=== PATIENT | female | born 1980 | race Caucasian/White ===

== ENCOUNTER 2018-04-04 21:23 | Emergency (ER) | payer SELFPAY ==
[~2018-04-04] VITALS: Ht 167.6 cm; Wt 63.0 kg
[2018-04-04 21:27] VITALS: BP 112/67; PULSE 76; RESP 16; TEMP 97.7; O2SAT 100
[2018-04-04] MEDS ORDERED: IBUP1TAB7 PO (21:55)
[2018-04-04] MEDS ORDERED: CEPH-460 PO (21:55)
--- NOTE | 2018-04-04 21:55 | PD ---
HPI Chief Complaint: Bite or Sting Time Seen by Provider: 21:40 Travel History International Travel<30 days: No Contact w/Intl Traveler<30days: No Traveled to known affect area: No History of Present Illness HPI Patient is a 37-year-old female presenting for evaluation of an insect bite to her left hip. Patient states started 3 days ago, she reported the pain was a 10 out of 10, she took ibuprofen 800 mg 1 hour prior to arrival which is reduced her pain. Patient reported that it drained spontaneously yesterday. The area had been previously marked by a friend who is a nurse and induration is receding. Patient has not had any fevers documented. She denies any other complaints at this time. She reports the pain is an ache and constant. She denies any pain with ambulation or in her hip. Patient further denies any significant past medical history. PFSH Past Medical History Medical History: Denies Significant Hx ?: Not LMP: 5 DAYS AGO Social History Tobacco Use: No Allergies-Medications (Allergen,Severity, Reaction): Coded Allergies: No Known Allergies (Unverified , 04/04/18) Review of Systems Except as stated in HPI: all other systems reviewed are Neg Musculoskeletal: Positive: Pain Skin: Positive Change in Pigmentation Physical Exam Narrative GENERAL: Well-developed, well-nourished, alert female. Presenting in no acute distress. SKIN: Warm and dry. Mild erythema noted to lateral aspect of left hip. Moderately tender to palpation. No fluctuance noted, no warmth noted. HEAD: Normocephalic. EYES: No scleral icterus. No injection or drainage. NECK: Supple, trachea midline. No JVD or lymphadenopathy. CARDIOVASCULAR: Regular rate and rhythm without murmurs, gallops, or rubs. RESPIRATORY: Breath sounds equal bilaterally. No accessory muscle use. GASTROINTESTINAL: Abdomen soft, non-tender, nondistended. MUSCULOSKELETAL: No cyanosis, or edema. BACK: Nontender without obvious deformity. No CVA tenderness. Data Data Last Documented VS Vital Signs Date Time Temp Pulse Resp B/P (MAP) Pulse Ox O2 Delivery O2 Flow Rate FiO2 04/04/18 21:27 97.7 76 16 112/67 (82) 100 Orders Orders Cephalexin (Keflex) (04/04/18 22:00) [facility] Medical Decision Making Medical Screen Exam Complete: Yes Emergency Medical Condition: Yes Interpretation(s) Vital Signs Date Time Temp Pulse Resp B/P (MAP) Pulse Ox O2 Delivery O2 Flow Rate FiO2 04/04/18 21:27 97.7 76 16 112/67 (82) 100 Differential Diagnosis Cellulitis versus abscess versus bite versus sting versus other Narrative Course Patient is a 37-year-old female presenting for evaluation of a suspected insect bite to her left lateral hip. Patient's vital signs are stable, area had been previously marked and induration is receding. Additionally it started draining spontaneously yesterday. It does not appear to be any area of fluctuance to indicate any further I&D. Patient will be started on Keflex prophylactically. First dose will be given now. She is encouraged to apply warm compresses to the affected area, take ibuprofen as needed as directed for pain. She is encouraged to return to emergency department for any new or worsening symptoms. Patient friend verbalized understanding of instructions. Patient stable for discharge. Diagnosis Primary Impression: Cellulitis Qualified Codes: L03.116 - Cellulitis of left lower limb Referrals: Primary Care Physician Patient Instructions: Cellulitis (ED), General Instructions Additional Instructions: Apply warm compress to the affected area Take ibuprofen as directed for pain Complete full course of antibiotics as prescribed Follow-up with primary doctor or at the [facility] Return to emergency department for any new worsening symptoms Med/Other Pt SpecificInfo: Prescription(s) given Scripts Ibuprofen (Ibuprofen) 800 Mg Tab 800 MG PO Q6HR Y for PAIN, #40 TAB 0 Refills Prov: Rahda Rogers 04/04/18 Cephalexin (Keflex) 500 Mg Cap 500 MG PO Q12H for Infection for 7 Days, #14 CAP 0 Refills Prov: Radha Rogers 04/04/18 Disposition: 01 DISCHARGE HOME Condition: Stable Radha Rogers April 04, 2018 21:55
[2018-04-04] MEDS ORDERED: CEPHALEXIN MONOHYDRATE 500 MG CAP PO ONE (22:00)
== END 2018-04-04 22:08 | disposition home or self-care (01) ==
LOC: NEPD 21:23
DX: L03.116 Cellulitis of left lower limb (principal)
CPT/HCPCS: 99283

== ENCOUNTER 2018-04-11 16:02 | Emergency (ER) | payer SELFPAY ==
[~2018-04-11] VITALS: Ht 167.6 cm; Wt 61.5 kg
[~2018-04-11 16:02] MED LIST: CEPH-460 PO; IBUP1TAB7 PO
[2018-04-11 16:07] VITALS: BP 117/67; PULSE 80; RESP 16; TEMP 98.6; O2SAT 100
--- NOTE | 2018-04-11 18:29 | PD ---
HPI Chief Complaint: Skin Problem Time Seen by Provider: 17:19 Travel History International Travel<30 days: No Contact w/Intl Traveler<30days: No Traveled to known affect area: No History of Present Illness HPI Patient is a 37-year-old female presenting to the emergency department for evaluation of a skin infection to her left lateral hip. Patient was evaluated for this approximately 1 week ago, she was given a prescription for Keflex but she reports compliance with. She denies any fever or chills, she states the pain has improved and the redness as well. She states it was draining spontaneously. She has been putting an [id number] salve on it for abscesses. Initially started out as an insect bite. Patient states mildly tender to palpation, she reports the pain is a 3 out of 10, sore, intermittent. PFSH Past Medical History Medical History: Denies Significant Hx Diminished Hearing: No Immunizations Current: Yes Tetanus Vaccination: < 5 Years Influenza Vaccination: No ?: Not LMP: march 30 Past Surgical History Surgical History: No Previous Surgery Social History Alcohol Use: No Tobacco Use: No Substance Use: No Allergies-Medications (Allergen,Severity, Reaction): Coded Allergies: No Known Allergies (Unverified , 04/11/18) Reported Meds & Prescriptions Reported Meds & Active Scripts Active Ibuprofen 800 Mg Tab 800 Mg PO Q6HR PRN Keflex (Cephalexin) 500 Mg Cap 500 Mg PO Q12H 7 Days Review of Systems Except as stated in HPI: all other systems reviewed are Neg Skin: Positive Change in Pigmentation, Positive Lesions Physical Exam Narrative GENERAL: Well-developed, well-nourished, alert female. Presenting in no acute distress. SKIN: Warm and dry. There is mild/faint erythema to the lateral aspect of the left hip. There is a circular 1-2 mm opening in the center that is draining serous fluid. No warmth noted, mildly tender to palpation. HEAD: Atraumatic. Normocephalic. EYES: Pupils equal and round. No scleral icterus. No injection or drainage. ENT: No nasal bleeding or discharge. Mucous membranes pink and moist. NECK: Trachea midline. No JVD. CARDIOVASCULAR: Regular rate and rhythm. RESPIRATORY: No accessory muscle use. Clear to auscultation. Breath sounds equal bilaterally. GASTROINTESTINAL: Abdomen soft, non-tender, nondistended. Hepatic and splenic margins not palpable. MUSCULOSKELETAL: Extremities without clubbing, cyanosis, or edema. No obvious deformities. NEUROLOGICAL: Awake and alert. No obvious cranial nerve deficits. Motor grossly within normal limits. Five out of 5 muscle strength in the arms and legs. Normal speech. PSYCHIATRIC: Appropriate mood and affect; insight and judgment normal. Data Data Last Documented VS Vital Signs Date Time Temp Pulse Resp B/P (MAP) Pulse Ox O2 Delivery O2 Flow Rate FiO2 04/11/18 16:07 98.6 80 16 117/67 (84) 100 Orders Orders Wound Culture And Gram Stain (04/11/18 17:30) [facility] Medical Decision Making Medical Screen Exam Complete: Yes Emergency Medical Condition: Yes Medical Record Reviewed: Yes Interpretation(s) Vital Signs Date Time Temp Pulse Resp B/P (MAP) Pulse Ox O2 Delivery O2 Flow Rate FiO2 04/11/18 16:07 98.6 80 16 117/67 (84) 100 Differential Diagnosis Cellulitis versus abscess versus normal healing versus other Narrative Course Patient is well-appearing 37-year-old female. Patient's vital signs are stable , area of cellulitis appears improved from previous visit. No purulent drainage or warmth noted at site. Wound culture has been obtained. Patient was also seen and evaluated by my attending physician. At this time patient will be discharged home on Bactrim and clindamycin. Patient was given strict return precautions. She was encouraged to keep wound clean and dry, change dressings twice daily as needed. She will be given a prescription for mupirocin ointment. Patient verbalized understanding of discharge instructions. Patient stable for discharge. Diagnosis Primary Impression: Cellulitis and abscess of left lower extremity Referrals: Primary Care Physician 1 week Patient Instructions: Abscess (ED), Cellulitis (ED), General Instructions Additional Instructions: Keep wound clean and dry, apply topical antibiotic ointment twice daily, change dressings twice daily and as needed for soiling Complete full course of antibiotics as prescribed Return to emergency department for any new or worsening symptoms Follow-up with your primary doctor or at the [facility] Med/Other Pt SpecificInfo: Prescription(s) given Scripts Clindamycin (Clindamycin) 300 Mg Cap 300 MG PO TID for Infection, #30 CAP 0 Refills Prov: Radha Rogers 04/11/18 Sulfamethoxazole-Trimethoprim (Bactrim DS) 800-160 Mg Tab 1 TAB PO BID for Infection, #20 TAB 0 Refills Prov: Radha Rogers 04/11/18 Mupirocin Topical (Mupirocin Topical) 2 % Oint 1 APPLIC TOPICAL BID for Mgmt Bacterial Infection, #22 GM 0 Refills Prov: Radha Rogers 04/11/18 Disposition: 01 DISCHARGE HOME Condition: Stable Radha Rogers Apr 11, 2018 18:29
[2018-04-11] MEDS ORDERED: MUPI2OIN TOPICAL (18:46)
[2018-04-11] MEDS ORDERED: BACT800T5 PO (18:46)
[2018-04-11] MEDS ORDERED: CLIN300C5 PO (18:46)
[2018-04-11 19:00] VITALS: BP 124/77; TEMP 98
--- NOTE | 2018-04-11 19:47 | PD ---
Physical Exam Date Seen by Provider: Apr 11, 2018 Time Seen by Provider: 18:45 Narrative I, Dr. De Leon, have reviewed the advance practice practitioner's documentation and am in agreement, met with the patient face to face, made the diagnosis, and the medical decision making was done by me. *My assessment and Findings: Patient initially seen and evaluated with PA, please see PA notes for further details. She is coming in after 1 week of Keflex, for a left buttocks cellulitis, she states is not improving and she has increased induration of the area. On exam, she has some allergic reaction to the adhesive of the bandages but she does have a coin-sized indurated area. I do not palpate any underlying fluctuance. Vital signs are stable in the ER. At this point, plan would be to place the patient on additional antibiotics with better coverage of MRSA. She should return for any worsening and swelling , pain, and as needed. The plan was discussed with her and she states understanding. Data Data Last Documented VS Vital Signs Date Time Temp Pulse Resp B/P (MAP) Pulse Ox O2 Delivery O2 Flow Rate FiO2 04/11/18 19:00 98.0 78 16 124/77 (93) 99 Orders Orders Wound Culture And Gram Stain (04/11/18 17:30) Ed Discharge Order (04/11/18 18:48) [facility] Medical Record Reviewed: Yes Supervised Visit with [place]: Yes Diagnosis Primary Impression: Cellulitis and abscess of left lower extremity Referrals: Primary Care Physician 1 week Patient Instructions: General Instructions, Cellulitis (ED), Abscess (ED) Departure Forms: Tests/Procedures Additional Instruction: Keep wound clean and dry, apply topical antibiotic ointment twice daily, change dressings twice daily and as needed for soiling Complete full course of antibiotics as prescribed Return to emergency department for any new or worsening symptoms Follow-up with your primary doctor or at the [facility] Scripts Clindamycin (Clindamycin) 300 Mg Cap 300 MG PO TID for Infection, #30 CAP 0 Refills Prov: Radha Rogers 04/11/18 Sulfamethoxazole-Trimethoprim (Bactrim DS) 800-160 Mg Tab 1 TAB PO BID for Infection, #20 TAB 0 Refills Prov: Radha Rogers 04/11/18 Mupirocin Topical (Mupirocin Topical) 2 % Oint 1 APPLIC TOPICAL BID for Mgmt Bacterial Infection, #22 GM 0 Refills Prov: Radha Rogers 04/11/18 Disposition: 01 DISCHARGE HOME Condition: Stable John De Leon MD Apr 11, 2018 19:47
== END 2018-04-11 19:00 | disposition home or self-care (01) ==
LOC: NEPC 16:02
DX: L02.416 Cutaneous abscess of left lower limb (principal); L03.317 Cellulitis of buttock
CPT/HCPCS: 87070; 87205; 99283